=== PATIENT | male | born 1970 | race Caucasian/White ===

== ENCOUNTER 2018-08-05 12:58 | Inpatient (IN) | payer SELFPAY ==
[~2018-08-05] VITALS: Ht 180.3 cm; Wt 110.2 kg
--- NOTE | ~2018-08-05 | EKG ---
[place], [place] ELECTROCARDIOGRAM REPORT NAME: AAYUSH VERGARA UNIT #: [id number] ROOM: 504 DOCTOR: KEDAR DRAFT REPORT BIRTHDATE: [birth year] [facility] Test Date: 2018-08-05 Test Time: 13:23:52 Pat Name: AAYUSH VERGARA Department: Room: [facility] Gender: M Side Puller: : 1970 Requested By: MARCOS RIVERA DNP Order Number: [id number] Reading MD: Jorge Luis Castillo MD Measurements Intervals [place] Rate: 88 P: 56 AR: 132 QRS: 0 QRSD: 96 T: 56 QT: 331 QTc: 401 Interpretive Statements Sinus rhythm Electronically Signed On 08-05-2018 18:30:05 PST by Jorge Luis Castillo MD CM:[email or web address]:ELECTROCARDIOGRAM REPORT [id number] MARCOS BEEANY DRAFT REPORT MARCOS RIVERA DNP
[2018-08-05 13:01] VITALS: BP 132/87
[2018-08-05 13:53] LABS: HEMATOCRIT 42.5 % (42.0-52.0); HEMOGLOBIN 15.5 g/dl (14.0-18.0); LYMPH # 1.2 10*3/uL (1.3-4.4); LYMPH % 19.9 % (27.0-41.0); MEAN CELL VOLUME 89.1 fl (80.0-94.0); MEAN CORPUSCULAR HGB 32.5 pg (27.0-31.0); MEAN CORPUSCULAR HGB CONC 36.5 g/dl (33.0-37.0); MEAN PLATELET VOLUME 11.1 fl (9.6-12.3); MONO # 0.4 10*3/uL (0.1-1.0); NEUT # 4.3 10*3/uL (2.3-7.9); NEUT % 73.8 % (47.0-73.0); PLATELET COUNT AUTOMATED 87 10*3/uL (130-400); RED BLOOD COUNT 4.77 10*6/uL (4.50-5.90); RED CELL DISTRI WIDTH 13.4 % (0-14.5); WHITE BLOOD COUNT 5.8 10*3/uL (4.8-10.8)
[2018-08-05 14:03] LABS: ACT PARTIAL THROMBO TIME 25.8 SECONDS (20.8-31.5)
[2018-08-05 14:08] LABS: ALBUMIN 3.3 gm/dl (3.1-4.5); ALKALINE PHOSPHATASE 104 U/L (45-117); BUN 12 mg/dl (7-24); CHLORIDE 104 mmol/L (98-107); CREATININE 1.17 mg/dL (0.70-1.30); LIPASE 214 U/L (73-393); POTASSIUM 3.6 mmol/L (3.5-5.1); SGOT/AST 48 IU/L (3-35); SGPT/ALT 88 U/L (12-78); SODIUM 136 mmol/L (136-145)
[2018-08-05 14:11] LABS: TROPONIN I < 0.015 ng/ml (<0.045)
[2018-08-05 14:15] VITALS: BP 133/84
[2018-08-05 17:15] VITALS: BP 125/74
[2018-08-05 20:00] VITALS: BP 137/73
[2018-08-06] VITALS: BP 128/49
[2018-08-06 06:04] LABS: BILIRUBIN NEGATIVE (NEGATIVE); BLOOD NEGATIVE (NEGATIVE); CLARITY CLEAR (CLEAR); COLOR YELLOW (YELLOW); GLUCOSE NEGATIVE (NEGATIVE); KETONE NEGATIVE (NEGATIVE); LEUKO ESTERASE NEGATIVE (NEGATIVE); NITRITE NEGATIVE (NEGATIVE); SPECIFIC GRAVITY 1.015 (1.005-1.030); UROBILINOGEN >= 8.0 E.U./dl (0.2-1.0)
[2018-08-06 06:18] LABS: BACTERIA TRACE; MUCOUS 1+
[2018-08-06 06:55] LABS: ALBUMIN 2.7 gm/dl (3.1-4.5); ALKALINE PHOSPHATASE 89 U/L (45-117); BUN 12 mg/dl (7-24); CHLORIDE 104 mmol/L (98-107); CHOLESTEROL 126 mg/dL (<200); CREATININE 1.12 mg/dL (0.70-1.30); FREE T4 0.85 ng/dl (0.76-1.46); HDL CHOLESTEROL 25 mg/dl (40-60); LDL CHOLESTEROL 71 mg/dL (9-159); PHOSPHOROUS 1.7 mg/dL (2.5-4.9); POTASSIUM 3.5 mmol/L (3.5-5.1); SGOT/AST 44 IU/L (3-35); SGPT/ALT 69 U/L (12-78); SODIUM 135 mmol/L (136-145); TOTAL PROTEIN 5.9 gm/dL (6.4-8.2); TRIGLYCERIDES 152 mg/dl (<150); VLDL CHOLESTEROL 30 mg/dL (6-40)
[2018-08-06 07:22] LABS: LYMPH # 1.3 10*3/uL (1.3-4.4); LYMPH % 24.6 % (27.0-41.0); MEAN CELL VOLUME 90.2 fl (80.0-94.0); MEAN CORPUSCULAR HGB CONC 35.4 g/dl (33.0-37.0); MEAN PLATELET VOLUME 11.8 fl (9.6-12.3); MONO # 0.2 10*3/uL (0.1-1.0); MONO % 3.7 % (3.0-9.0); NEUT # 3.8 10*3/uL (2.3-7.9); NEUT % 71.5 % (47.0-73.0); NUCLEATED RED BLOOD CELL 0.4 % (0.0-0.0); PLATELET COUNT AUTOMATED 74 10*3/uL (130-400); RED CELL DISTRI WIDTH 13.4 % (0-14.5); WHITE BLOOD COUNT 5.4 10*3/uL (4.8-10.8)
[2018-08-06 07:25] LABS: HEMOGLOBIN 13.1 g/dl (14.0-18.0)
[2018-08-06 08:27] VITALS: BP 112/68
[2018-08-06 12:00] VITALS: BP 104/68
[2018-08-06 20:00] VITALS: BP 135/82
[2018-08-07] VITALS: BP 125/79
[2018-08-07 06:30] LABS: BASO % 0.2 % (0.0-1.0); HEMATOCRIT 39.4 % (42.0-52.0); HEMOGLOBIN 14.1 g/dl (14.0-18.0); LYMPH # 2.1 10*3/uL (1.3-4.4); MEAN CELL VOLUME 89.3 fl (80.0-94.0); MEAN CORPUSCULAR HGB CONC 35.8 g/dl (33.0-37.0); MEAN PLATELET VOLUME 11.7 fl (9.6-12.3); MONO # 0.2 10*3/uL (0.1-1.0); MONO % 3.2 % (3.0-9.0); NEUT % 57.4 % (47.0-73.0); PLATELET COUNT AUTOMATED 79 10*3/uL (130-400); RED BLOOD COUNT 4.41 10*6/uL (4.50-5.90); RED CELL DISTRI WIDTH 13.4 % (0-14.5); WHITE BLOOD COUNT 5.3 10*3/uL (4.8-10.8)
[2018-08-07 06:42] LABS: BUN 11 mg/dl (7-24); CHLORIDE 107 mmol/L (98-107); CREATININE 0.96 mg/dL (0.70-1.30); PHOSPHOROUS 2.6 mg/dL (2.5-4.9); POTASSIUM 3.4 mmol/L (3.5-5.1); SODIUM 139 mmol/L (136-145)
[2018-08-07] MEDS ORDERED: TAMIFLU 75MG CA75 MG PO (11:06)
== END 2018-08-07 11:47 | disposition home or self-care (01) | DRG 871 ==
LOC: ED 12:58 → 5E 14:55 → EDHOLD 14:55 → 5E 16:53
PROVIDERS: Internal Medicine Nephrology; Nurse Practitioner Family; ADMIT Internal Medicine
DX: A41.9 Sepsis, unspecified organism (principal); J18.9 Pneumonia, unspecified organism; E44.1 Mild protein-calorie malnutrition; D69.6 Thrombocytopenia, unspecified; R73.9 Hyperglycemia, unspecified; E66.09 Other obesity due to excess calories; I25.10 Atherosclerotic heart disease of native coronary artery without angina pectoris; L80 Vitiligo; E83.39 Other disorders of phosphorus metabolism; F17.210 Nicotine dependence, cigarettes, uncomplicated; Z82.49 Family history of ischemic heart disease and other diseases of the circulatory system; Z82.3 Family history of stroke; Z71.6 Tobacco abuse counseling; Z68.33 Body mass index [BMI] 33.0-33.9, adult; Z82.61 Family history of arthritis

== ENCOUNTER 2019-03-07 06:12 | Emergency (ER) | payer SELFPAY ==
[~2019-03-07] VITALS: Ht 182.8 cm; Wt 117.9 kg
[~2019-03-07 06:12] MED LIST: TAMIFLU 75MG CA75 MG PO
[2019-03-07 06:50] LABS: BASO % 0.1 % (0.0-1.0); HEMATOCRIT 43.3 % (42.0-52.0); HEMOGLOBIN 15.5 g/dl (14.0-18.0); LYMPH % 13.6 % (27.0-41.0); MEAN CELL VOLUME 90.4 fl (80.0-94.0); MEAN CORPUSCULAR HGB 32.4 pg (27.0-31.0); MEAN CORPUSCULAR HGB CONC 35.8 g/dl (33.0-37.0); MEAN PLATELET VOLUME 10.2 fl (9.6-12.3); MONO # 0.9 10*3/uL (0.1-1.0); NEUT # 11.5 10*3/uL (2.3-7.9); PLATELET COUNT AUTOMATED 147 10*3/uL (130-400); RED BLOOD COUNT 4.79 10*6/uL (4.50-5.90); WHITE BLOOD COUNT 14.4 10*3/uL (4.8-10.8)
[2019-03-07 07:04] LABS: ALBUMIN 3.4 gm/dl (3.1-4.5); ALKALINE PHOSPHATASE 121 U/L (45-117); BUN 12 mg/dl (7-24); CHLORIDE 106 mmol/L (98-107); CREATININE 1.11 mg/dL (0.70-1.30); POTASSIUM 3.9 mmol/L (3.5-5.1); SGOT/AST 20 IU/L (3-35); SGPT/ALT 78 U/L (12-78); SODIUM 139 mmol/L (136-145); TOTAL PROTEIN 6.9 gm/dL (6.4-8.2)
[2019-03-07] MEDS ORDERED: TYLENOL325 M1 PO (08:11)
[2019-03-07] MEDS ORDERED: LEVOFLOXACIN500 MG PO (08:11)
[2019-03-07] MEDS ORDERED: NAPROSYN500 MG PO (08:11)
== END 2019-03-07 08:18 | disposition home or self-care (01) ==
LOC: ED 06:12
PROVIDERS: Emergency Medicine Emergency Medical Services
DX: N45.3 Epididymo-orchitis (principal); N43.3 Hydrocele, unspecified; R73.9 Hyperglycemia, unspecified; I25.10 Atherosclerotic heart disease of native coronary artery without angina pectoris; I25.2 Old myocardial infarction; E66.9 Obesity, unspecified

== ENCOUNTER 2019-04-16 19:28 | Inpatient (IN) | payer SELFPAY ==
[~2019-04-16] VITALS: Ht 182.9 cm; Wt 114.9 kg
[2019-04-16] VITALS (7 sets, daily range): BP systolic 119–136; BP diastolic 69–81
[~2019-04-16 19:28] MED LIST changes: +LEVOFLOXACIN500 MG PO; +NAPROSYN500 MG PO; +TYLENOL325 M1 PO
[2019-04-16 20:09] LABS: HEMATOCRIT 35.4 % (42.0-52.0); MEAN CELL VOLUME 89.6 fl (80.0-94.0); MEAN CORPUSCULAR HGB 32.9 pg (27.0-31.0); MEAN CORPUSCULAR HGB CONC 36.7 g/dl (33.0-37.0); MEAN PLATELET VOLUME 12.2 fl (9.6-12.3); PLATELET COUNT AUTOMATED 35 10*3/uL (130-400); RED BLOOD COUNT 3.95 10*6/uL (4.50-5.90); RED CELL DISTRI WIDTH 13.8 % (0-14.5); WHITE BLOOD COUNT 4.3 10*3/uL (4.8-10.8)
[2019-04-16 20:35] LABS: ALBUMIN 2.6 gm/dl (3.1-4.5); ALKALINE PHOSPHATASE 166 U/L (45-117); BUN 21 mg/dl (7-24); CHLORIDE 97 mmol/L (98-107); LIPASE 211 U/L (73-393); POTASSIUM 3.1 mmol/L (3.5-5.1); SGOT/AST 300 IU/L (3-35); SGPT/ALT 328 U/L (12-78); SODIUM 129 mmol/L (136-145); TOTAL PROTEIN 5.9 gm/dL (6.4-8.2)
[2019-04-16 20:42] LABS: ACT PARTIAL THROMBO TIME 32.3 SECONDS (20.0-32.1); INTERNATIONAL NORM RATIO 1.1 (2.0-3.5)
[2019-04-16 20:42] LABS: BILIRUBIN 3+ (NEGATIVE); BLOOD TRACE-LYSED (NEGATIVE); CLARITY CLEAR (CLEAR); COLOR ORANGE (YELLOW); GLUCOSE TRACE (NEGATIVE); KETONE TRACE (NEGATIVE); LEUKO ESTERASE NEGATIVE (NEGATIVE); NITRITE POSITIVE (NEGATIVE); UROBILINOGEN >= 8.0 E.U./dl (0.2-1.0)
[2019-04-16 20:55] LABS: BACTERIA TRACE; EPITHELIAL CELLS 0-2; WBC 0-2 wbc/hpf (0-5)
[2019-04-16 21:29] LABS: TOTAL CELLS COUNTED 100 #CELLS
[2019-04-16 21:32] LABS: BLASTS 1 % (0-0)
--- NOTE | 2019-04-16 21:32 | NUR ---
[facility] CALLED TO NOTIFY THIS RN THAT "1 BLAST SEEN ON CBC" PROVIDER MADE AWARE.
[2019-04-16 21:34] LABS: DIFFERENTIAL COMMENT >5% SMUDGE CELLS
--- NOTE | 2019-04-16 23:05 | NUR ---
PATIENT ARRIVED TO THE FLOOR VIA CART FROM ER ESCORTED BY RN. PATIENT WAS BEING MONITORED AND ON NC OXYGEN AT 3LPM. PATIENT AMBULATED FROM CART IN HALLWAY TO BED WITHOUT ASSISTANCE, GAIT WAS EQUAL AND STEADY. ADMISSION ASSESSMENT COMPLETED WITHOUT INCIDENT. PATIENT DENIES ANY CHEST PAIN/PRESSURE, SHORTNESS OF BREATH, ABDOMINAL PAIN OR TENDERNESS ON PALPATION. REMAINS ON NASAL CANNULA 3LPM. PATIENT WISHES TO BE A DNR-CC, DR. GREWLA AWARE PAPERWORK SIGNED, MONITOR REMOVED PER HER ORDERS. MEDICATIONS REVIEWED WITH PATIENT WHO DENIED TAKING ANY PERSCRIPTIONS AT HOME. CALL LIGHT, ROOM, AND FLOOR ORIENTATION COMPLETED. PATIENT DENIES ANY NEEDS AT THIS TIME. WILL CONTIUE TO MONITOR.
--- NOTE | 2019-04-17 04:00 | NUR ---
PATIENT RESTING IN BED IN A POSITION OF COMFORT AT THIS TIME. IV INFUSING WITHOUT INCIDENT. NASAL CANNULA OXYGEN 3LPM IN USE. RESPIRATIONS EASY AND NON-LABORED. NOT AWAKENED PER [facility] [place]. CALL LIGHT WITHIN REACH. WILL CONTINUE TO MONITOR.
--- NOTE | 2019-04-17 06:30 | NUR ---
CALLED AND MESSAGE LEFT ON [employer] TO NOTIFY OF CONSULT ON THIS PATIENT. AWAITING CALL BACK.
--- NOTE | 2019-04-17 06:50 | NUR ---
DR. GAMBLE RETURNED CALL, ORDERS RECEIVED. RN TO CALL HIM WITH RESULTS OR ORDERED BLOOD WORK,
[2019-04-17 07:38] LABS: HEMATOCRIT 35.2 % (42.0-52.0); HEMOGLOBIN 12.4 g/dl (14.0-18.0); MEAN CELL VOLUME 91.4 fl (80.0-94.0); MEAN CORPUSCULAR HGB 32.2 pg (27.0-31.0); MEAN CORPUSCULAR HGB CONC 35.2 g/dl (33.0-37.0); MEAN PLATELET VOLUME 13.5 fl (9.6-12.3); PLATELET COUNT AUTOMATED 33 10*3/uL (130-400); RED BLOOD COUNT 3.85 10*6/uL (4.50-5.90); RED CELL DISTRI WIDTH 14.2 % (0-14.5); WHITE BLOOD COUNT 4.3 10*3/uL (4.8-10.8)
[2019-04-17 08:00] VITALS: BP 127/77
[2019-04-17 08:08] LABS: ALBUMIN 2.3 gm/dl (3.1-4.5); ALKALINE PHOSPHATASE 144 U/L (45-117); BUN 22 mg/dl (7-24); CHLORIDE 101 mmol/L (98-107); CREATININE 1.17 mg/dL (0.70-1.30); PHOSPHOROUS 1.5 mg/dL (2.5-4.9); POTASSIUM 3.4 mmol/L (3.5-5.1); SGPT/ALT 311 U/L (12-78); SODIUM 133 mmol/L (136-145); TOTAL PROTEIN 5.1 gm/dL (6.4-8.2)
[2019-04-17 08:09] LABS: SGOT/AST 261 IU/L (3-35)
[2019-04-17 08:40] LABS: ATYPICAL LYMPHS 3 % (0-0); PLATELET SUFFICIENCY LOW (NORMAL); TARGET CELLS FEW; TOTAL CELLS COUNTED 100 #CELLS
--- NOTE | 2019-04-17 09:32 | NUR ---
PATIENT REFUSING FLU VACCINE.
--- NOTE | 2019-04-17 09:55 | NUR ---
Shift chart check completed.
--- NOTE | 2019-04-17 10:54 | NUR ---
Patient resting quietly with no c/o discomfort. Respirations easy and regular. Vital signs stable. No overt distress. HISSOM,JULIA
[2019-04-17 12:00] VITALS: BP 125/70
--- NOTE | 2019-04-17 15:00 | NUR ---
PATIENT OFF THE FOOR FOR CT SCAN
--- NOTE | 2019-04-17 15:00 | NUR ---
IV started left antecubital with #22 protective cath after 1 attempts. Site prepped with Chloroprep. Sterile dressing applied. Patient tolerated procedure well. JULIA CRUZ
--- NOTE | 2019-04-17 15:30 | NUR ---
PT BACK FROM CT. RESTING IN BED. FAMILY AT THE BEDSIDE. VOICES NO CONCERNS AT THIS TIME. CALL LIGHT WITHIN REACH
--- NOTE | 2019-04-17 15:43 | NUR ---
IV started left forearm with #22 protective cath after 1 attempts. Site prepped with Chloroprep. Sterile dressing applied. Patient tolerated procedure well. JULIA CRUZ
[2019-04-17 16:00] VITALS: BP 143/75
--- NOTE | 2019-04-17 17:15 | NUR ---
INFORMED DR. TURPIN THAT A BED WAS AVAILABLE FOR TRANSFER TO [facility]
--- NOTE | 2019-04-17 17:41 | NUR ---
REPORT GIVEN TO [facility] NURSE
--- NOTE | 2019-04-17 18:23 | NUR ---
Patient resting quietly with no c/o discomfort. Respirations easy and regular. Vital signs stable. No overt distress. HISSOM,JULIA
--- NOTE | 2019-04-17 18:34 | NUR ---
Discharge instructions reviewed with patient/family. Patient receptive and verbalizes understanding. HISSOM,JULIA
--- NOTE | 2019-04-17 18:35 | NUR ---
The Discharge Plan/Instructions have been completed.
[2019-04-18 09:27] LABS: PLATELET SUFFICIENCY LOW (NORMAL)
[2019-04-19 05:10] LABS: HEPATITIS B SURFACE AG Negative (Negative); HEPATITIS C VIRUS ANTIBODY 0.1 s/co (0.0-0.9)
== END 2019-04-17 18:35 | disposition short-term general hospital (02) | DRG 871 ==
LOC: ED 19:28 → EDHOLD 22:12 → 5E 22:28
PROVIDERS: Emergency Medicine Emergency Medical Services; Internal Medicine Gastroenterology; Student in an Organized Health Care Education/Training Program; ADMIT Internal Medicine
DX: A41.9 Sepsis, unspecified organism (principal); J96.01 Acute respiratory failure with hypoxia; J18.9 Pneumonia, unspecified organism; E43 Unspecified severe protein-calorie malnutrition; N17.0 Acute kidney failure with tubular necrosis; D61.818 Other pancytopenia; R17 Unspecified jaundice; E87.1 Hypo-osmolality and hyponatremia; R65.20 Severe sepsis without septic shock; K80.20 Calculus of gallbladder without cholecystitis without obstruction; I25.10 Atherosclerotic heart disease of native coronary artery without angina pectoris; Z66 Do not resuscitate; Z51.5 Encounter for palliative care; R74.0 Nonspecific elevation of levels of transaminase and lactic acid dehydrogenase [LDH]; R73.9 Hyperglycemia, unspecified; E87.6 Hypokalemia; G47.33 Obstructive sleep apnea (adult) (pediatric); E66.09 Other obesity due to excess calories; F17.210 Nicotine dependence, cigarettes, uncomplicated; I25.2 Old myocardial infarction; Z88.5 Allergy status to narcotic agent; Z68.34 Body mass index [BMI] 34.0-34.9, adult; Z71.6 Tobacco abuse counseling; Z82.49 Family history of ischemic heart disease and other diseases of the circulatory system; Z82.3 Family history of stroke; Z82.61 Family history of arthritis; Z68.33 Body mass index [BMI] 33.0-33.9, adult; Z79.899 Other long term (current) drug therapy

== ENCOUNTER 2021-03-26 23:24 | Emergency (ER) | payer BC ==
[~2021-03-26] VITALS: Ht 182.8 cm; Wt 117.9 kg
[2021-03-27 00:36] LABS: BASO % 0.1 % (0.0-1.0); EOS % 0.1 % (1.0-4.0); HEMATOCRIT 46.4 % (42.0-52.0); LYMPH # 3.2 10*3/uL (1.3-4.4); LYMPH % 41.9 % (27.0-41.0); MEAN CELL VOLUME 89.4 fl (80.0-94.0); MEAN CORPUSCULAR HGB 31.4 pg (27.0-31.0); MEAN CORPUSCULAR HGB CONC 35.1 g/dl (33.0-37.0); MEAN PLATELET VOLUME 11.2 fl (9.6-12.3); MONO # 0.4 10*3/uL (0.1-1.0); MONO % 5.4 % (3.0-9.0); NEUT % 52.4 % (47.0-73.0); PLATELET COUNT AUTOMATED 131 10*3/uL (130-400); RED BLOOD COUNT 5.19 10*6/uL (4.50-5.90); RED CELL DISTRI WIDTH 12.4 % (0-14.5); WHITE BLOOD COUNT 7.6 10*3/uL (4.8-10.8)
[2021-03-27 01:01] LABS: ALBUMIN 3.3 gm/dl (3.1-4.5); ALKALINE PHOSPHATASE 146 U/L (45-117); BUN 16 mg/dl (7-24); CHLORIDE 103 mmol/L (98-107); CREATININE 1.16 mg/dL (0.70-1.30); POTASSIUM 3.5 mmol/L (3.5-5.1); SGOT/AST 76 IU/L (3-35); SGPT/ALT 214 U/L (12-78); SODIUM 135 mmol/L (136-145); TOTAL PROTEIN 6.8 gm/dL (6.4-8.2)
== END 2021-03-27 04:03 | disposition home or self-care (01) ==
LOC: ED 23:24
PROVIDERS: Emergency Medicine
DX: R73.9 Hyperglycemia, unspecified (principal); Z88.6 Allergy status to analgesic agent; F17.200 Nicotine dependence, unspecified, uncomplicated; I25.2 Old myocardial infarction

== ENCOUNTER → 2021-03-30 | Outpatient (CLI) | payer BC ==
[2021-03-30 11:40] LABS: BASO % 0.1 % (0.0-1.0); HEMATOCRIT 48.7 % (42.0-52.0); LYMPH # 2.8 10*3/uL (1.3-4.4); LYMPH % 32.6 % (27.0-41.0); MEAN CELL VOLUME 88.7 fl (80.0-94.0); MEAN CORPUSCULAR HGB 31.9 pg (27.0-31.0); MEAN CORPUSCULAR HGB CONC 35.9 g/dl (33.0-37.0); MEAN PLATELET VOLUME 10.9 fl (9.6-12.3); MONO # 0.4 10*3/uL (0.1-1.0); NEUT # 5.4 10*3/uL (2.3-7.9); NEUT % 62.1 % (47.0-73.0); PLATELET COUNT AUTOMATED 144 10*3/uL (130-400); RED BLOOD COUNT 5.49 10*6/uL (4.50-5.90); RED CELL DISTRI WIDTH 12.2 % (0-14.5); WHITE BLOOD COUNT 8.6 10*3/uL (4.8-10.8)
[2021-03-30 11:58] LABS: ALBUMIN 3.6 gm/dl (3.1-4.5); ALKALINE PHOSPHATASE 136 U/L (45-117); BUN 17 mg/dl (7-24); CHLORIDE 106 mmol/L (98-107); CHOLESTEROL 267 mg/dL (<200); CREATININE 1.16 mg/dL (0.70-1.30); FREE T4 0.93 ng/dl (0.76-1.46); SGOT/AST 103 IU/L (3-35); SGPT/ALT 259 U/L (12-78); SODIUM 136 mmol/L (136-145); TOTAL PROTEIN 7.3 gm/dL (6.4-8.2); TRIGLYCERIDES 462 mg/dl (<150)
== END | disposition home or self-care (01) ==
LOC: LAB 11:07
PROVIDERS: Family Medicine; ATTEND Family Medicine
DX: E11.65 Type 2 diabetes mellitus with hyperglycemia (principal); R79.89 Other specified abnormal findings of blood chemistry

== ENCOUNTER → 2021-07-14 | Outpatient (CLI) | payer BC ==
[2021-07-14 10:07] LABS: BASO % 0.1 % (0.0-1.0); EOS % 0.1 % (1.0-4.0); HEMATOCRIT 51.3 % (42.0-52.0); LYMPH # 3.5 10*3/uL (1.3-4.4); LYMPH % 37.7 % (27.0-41.0); MEAN CELL VOLUME 91.6 fl (80.0-94.0); MEAN CORPUSCULAR HGB 31.4 pg (27.0-31.0); MEAN CORPUSCULAR HGB CONC 34.3 g/dl (33.0-37.0); MEAN PLATELET VOLUME 11.3 fl (9.6-12.3); MONO # 0.5 10*3/uL (0.1-1.0); MONO % 5.5 % (3.0-9.0); NEUT # 5.2 10*3/uL (2.3-7.9); NEUT % 56.5 % (47.0-73.0); PLATELET COUNT AUTOMATED 192 10*3/uL (130-400); RED CELL DISTRI WIDTH 12.7 % (0-14.5); WHITE BLOOD COUNT 9.2 10*3/uL (4.8-10.8)
[2021-07-14 10:23] LABS: ALBUMIN 3.4 gm/dl (3.1-4.5); ALKALINE PHOSPHATASE 333 U/L (45-117); BUN 9 mg/dl (7-24); CHLORIDE 108 mmol/L (98-107); CHOLESTEROL 286 mg/dL (<200); CREATININE 1.05 mg/dL (0.70-1.30); LDL CHOLESTEROL 176 mg/dL (9-159); POTASSIUM 4.1 mmol/L (3.5-5.1); SGOT/AST 75 IU/L (3-35); SGPT/ALT 213 U/L (12-78); SODIUM 139 mmol/L (136-145); TOTAL PROTEIN 7.6 gm/dL (6.4-8.2); TRIGLYCERIDES 359 mg/dl (<150)
== END ==
LOC: LAB 09:29
PROVIDERS: ATTEND Student in an Organized Health Care Education/Training Program
DX: E78.1 Pure hyperglyceridemia (principal); R53.83 Other fatigue; R73.9 Hyperglycemia, unspecified

== ENCOUNTER 2021-07-29 12:10 | Emergency (ER) | payer BC ==
[~2021-07-29] VITALS: Ht 182.8 cm; Wt 105.7 kg
[2021-07-29 12:45] LABS: BASO % 0.1 % (0.0-1.0); EOS % 0.1 % (1.0-4.0); HEMATOCRIT 48.9 % (42.0-52.0); LYMPH # 2.2 10*3/uL (1.3-4.4); LYMPH % 20.2 % (27.0-41.0); MEAN CELL VOLUME 89.6 fl (80.0-94.0); MEAN CORPUSCULAR HGB 31.3 pg (27.0-31.0); MEAN PLATELET VOLUME 10.6 fl (9.6-12.3); MONO # 0.5 10*3/uL (0.1-1.0); MONO % 4.7 % (3.0-9.0); NEUT # 8.2 10*3/uL (2.3-7.9); NEUT % 74.6 % (47.0-73.0); PLATELET COUNT AUTOMATED 186 10*3/uL (130-400); RED BLOOD COUNT 5.46 10*6/uL (4.50-5.90); RED CELL DISTRI WIDTH 12.6 % (0-14.5); WHITE BLOOD COUNT 10.9 10*3/uL (4.8-10.8)
[2021-07-29 13:05] LABS: ALBUMIN 3.3 gm/dl (3.1-4.5); ALKALINE PHOSPHATASE 325 U/L (45-117); BUN 15 mg/dl (7-24); CHLORIDE 111 mmol/L (98-107); CREATININE 1.34 mg/dL (0.70-1.30); LIPASE 458 U/L (73-393); SGOT/AST 51 IU/L (3-35); SGPT/ALT 156 U/L (12-78); SODIUM 139 mmol/L (136-145); TOTAL PROTEIN 7.5 gm/dL (6.4-8.2)
[2021-07-29 14:48] LABS: BILIRUBIN Negative (Negative); BLOOD 3+ (Negative); CLARITY Cloudy (Clear); COLOR Yellow (Yellow); GLUCOSE Negative (Negative); KETONE Negative (Negative); LEUKO ESTERASE 1+ (Negative); NITRITE Negative (Negative); PH 5.5 (4.5-8.0)
[2021-07-29 14:55] LABS: BACTERIA 1+; EPITHELIAL CELLS 0-2
[2021-07-29] MEDS ORDERED: FLOMAX0.4 MG PO (17:24)
[2021-07-29] MEDS ORDERED: ZOFRAN4 MG PO (17:24)
[2021-07-29] MEDS ORDERED: ULTRAM50 MG PO (17:25)
== END 2021-07-29 17:49 | disposition home or self-care (01) ==
LOC: ED 12:10
PROVIDERS: Physician Assistant
DX: N13.2 Hydronephrosis with renal and ureteral calculous obstruction (principal); F17.200 Nicotine dependence, unspecified, uncomplicated; Z88.6 Allergy status to analgesic agent; Z98.890 Other specified postprocedural states

== ENCOUNTER 2021-08-01 06:31 | Emergency (ER) | payer BC ==
[~2021-08-01] VITALS: Ht 185.4 cm; Wt 104.3 kg
[~2021-08-01 06:31] MED LIST changes: +FLOMAX0.4 MG PO; +ULTRAM50 MG PO; +ZOFRAN4 MG PO
[2021-08-01 07:25] LABS: BILIRUBIN 2+ (Negative); BLOOD 3+ (Negative); CLARITY Cloudy (Clear); COLOR Dark Yellow (Yellow); GLUCOSE Negative (Negative); KETONE Trace (Negative); LEUKO ESTERASE 2+ (Negative); NITRITE Negative (Negative); PH 5.5 (4.5-8.0)
[2021-08-01 07:40] LABS: BACTERIA TRACE; MUCOUS 1+; RBC 16-20 rbc/hpf (0-2); WBC 21-30 wbc/hpf (0-5)
[2021-08-01 08:36] LABS: BASO % 0.1 % (0.0-1.0); HEMATOCRIT 45.9 % (42.0-52.0); LYMPH # 1.1 10*3/uL (1.3-4.4); LYMPH % 8.9 % (27.0-41.0); MEAN CELL VOLUME 88.1 fl (80.0-94.0); MEAN CORPUSCULAR HGB 31.1 pg (27.0-31.0); MEAN CORPUSCULAR HGB CONC 35.3 g/dl (33.0-37.0); MEAN PLATELET VOLUME 10.8 fl (9.6-12.3); MONO # 0.5 10*3/uL (0.1-1.0); MONO % 4.2 % (3.0-9.0); NEUT # 10.9 10*3/uL (2.3-7.9); NEUT % 86.4 % (47.0-73.0); PLATELET COUNT AUTOMATED 173 10*3/uL (130-400); RED BLOOD COUNT 5.21 10*6/uL (4.50-5.90); RED CELL DISTRI WIDTH 12.2 % (0-14.5); WHITE BLOOD COUNT 12.6 10*3/uL (4.8-10.8)
[2021-08-01 08:47] LABS: ACT PARTIAL THROMBO TIME 26.3 SECONDS (20.0-32.1)
[2021-08-01 08:52] LABS: ALBUMIN 3.2 gm/dl (3.1-4.5); ALKALINE PHOSPHATASE 359 U/L (45-117); BUN 15 mg/dl (7-24); CHLORIDE 105 mmol/L (98-107); CREATININE 1.23 mg/dL (0.70-1.30); LIPASE 267 U/L (73-393); POTASSIUM 3.8 mmol/L (3.5-5.1); SGOT/AST 53 IU/L (3-35); SGPT/ALT 141 U/L (12-78); SODIUM 137 mmol/L (136-145); TOTAL PROTEIN 7.4 gm/dL (6.4-8.2)
== END 2021-08-01 11:09 | disposition home or self-care (01) ==
LOC: ED 06:31
PROVIDERS: Emergency Medicine
DX: N39.0 Urinary tract infection, site not specified (principal); N20.1 Calculus of ureter; F17.200 Nicotine dependence, unspecified, uncomplicated; Z88.6 Allergy status to analgesic agent; Z98.890 Other specified postprocedural states

== ENCOUNTER 2022-01-02 12:04 | Emergency (ER) | payer OTHER, BC ==
[~2022-01-02] VITALS: Ht 182.8 cm; Wt 89.4 kg
[2022-01-02 14:14] LABS: BASO % 0.1 % (0.0-1.0); HEMATOCRIT 44.8 % (42.0-52.0); LYMPH % 18.1 % (27.0-41.0); MEAN CORPUSCULAR HGB 30.9 pg (27.0-31.0); MEAN CORPUSCULAR HGB CONC 34.4 g/dl (33.0-37.0); MEAN PLATELET VOLUME 10.5 fl (9.6-12.3); MONO # 0.5 10*3/uL (0.1-1.0); MONO % 4.7 % (3.0-9.0); NEUT # 8.4 10*3/uL (2.3-7.9); NEUT % 76.8 % (47.0-73.0); PLATELET COUNT AUTOMATED 201 10*3/uL (130-400); RED BLOOD COUNT 4.98 10*6/uL (4.50-5.90); RED CELL DISTRI WIDTH 13.7 % (0-14.5)
[2022-01-02 14:43] LABS: ALKALINE PHOSPHATASE 348 U/L (45-117); BUN 13 mg/dl (7-24); CHLORIDE 109 mmol/L (98-107); LIPASE 198 U/L (73-393); SGOT/AST 32 IU/L (3-35); SGPT/ALT 53 U/L (12-78); SODIUM 140 mmol/L (136-145); TOTAL PROTEIN 7.2 gm/dL (6.4-8.2)
[2022-01-02] MEDS ORDERED: FLOMAX0.4 MG PO (17:09)
== END 2022-01-02 17:20 | disposition home or self-care (01) ==
LOC: ED 12:04
PROVIDERS: Family Medicine
DX: N20.0 Calculus of kidney (principal); K40.90 Unilateral inguinal hernia, without obstruction or gangrene, not specified as recurrent; F17.200 Nicotine dependence, unspecified, uncomplicated; Z79.899 Other long term (current) drug therapy; Z88.5 Allergy status to narcotic agent

== ENCOUNTER 2022-03-09 19:25 | Emergency (ER) | payer OTHER | END 2022-03-09 22:00 | disposition left against medical advice (07) | LOC: ED 19:25 | DX: R10.9 Unspecified abdominal pain (principal); R50.9 Fever, unspecified; R11.0 Nausea; Z53.21 Procedure and treatment not carried out due to patient leaving prior to being seen by health care provider ==

== ENCOUNTER 2024-08-12 10:52 | Emergency (ER) | payer BC ==
[~2024-08-12] VITALS: Ht 180.3 cm; Wt 105.7 kg
[2024-08-12 11:38] LABS: BASO % 0.1 % (0.0-1.0); HEMATOCRIT 49.6 % (42.0-52.0); MEAN CELL VOLUME 90.7 fl (80.0-94.0); MEAN CORPUSCULAR HGB 30.7 pg (27.0-31.0); MEAN CORPUSCULAR HGB CONC 33.9 g/dl (33.0-37.0); MEAN PLATELET VOLUME 10.7 fl (9.6-12.3); MONO # 0.5 10*3/uL (0.1-1.0); MONO % 5.6 % (3.0-9.0); NEUT # 5.1 10*3/uL (2.3-7.9); NEUT % 60.9 % (47.0-73.0); PLATELET COUNT AUTOMATED 137 10*3/uL (130-400); RED BLOOD COUNT 5.47 10*6/uL (4.50-5.90); RED CELL DISTRI WIDTH 14.2 % (0-14.5); WHITE BLOOD COUNT 8.4 10*3/uL (4.8-10.8)
[2024-08-12 11:57] LABS: BUN 10 mg/dl (9-23); CHLORIDE 106 mmol/L (98-107); POTASSIUM 3.9 mmol/L (3.4-5.1)
== END 2024-08-12 14:06 | disposition home or self-care (01) ==
LOC: ED 10:52
PROVIDERS: Physician Assistant Medical
DX: R07.89 Other chest pain (principal); Z20.822 Contact with and (suspected) exposure to COVID-19; I25.10 Atherosclerotic heart disease of native coronary artery without angina pectoris; E11.9 Type 2 diabetes mellitus without complications; I25.2 Old myocardial infarction; F17.200 Nicotine dependence, unspecified, uncomplicated; Z88.5 Allergy status to narcotic agent; Z88.8 Allergy status to other drugs, medicaments and biological substances; Z95.5 Presence of coronary angioplasty implant and graft